=== PATIENT | female | born 1990 | race Hispanic/Latino ===

== ENCOUNTER 2018-05-25 21:00 | Emergency (ER) | payer OTHER, SELFPAY ==
[2018-05-25] MEDS ORDERED: HYDROCODONE/APAP 5/325 MG TAB ONE (22:11)
[2018-05-25 22:22] LABS: Urine Blood NEGATIVE (NEG); Urine Glucose NEGATIVE (NEG); Urine Protein NEGATIVE (NEG); Urine Specific Gravity 1.025 (1.005-1.030)
[2018-05-25] MEDS ORDERED: IBUPROFEN 200 MG TAB PO ONE (22:37)
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
== END 2018-05-26 | disposition home or self-care (01) ==
LOC: ER 21:00
DX: S20.219A Contusion of unspecified front wall of thorax, initial encounter (principal); V49.40XA Driver injured in collision with unspecified motor vehicles in traffic accident, initial encounter; M23.91 Unspecified internal derangement of right knee
CPT/HCPCS: 71045; 81003; 81025; 99284